=== PATIENT | female | born 1995 | race Caucasian/White ===

== ENCOUNTER 2024-01-04 01:00 | Emergency (ER) | payer MEDICAID ==
[~2024-01-04] VITALS: Ht 172.7 cm; Wt 74.8 kg
[2024-01-04 01:10] VITALS: BP 104/72; PULSE 92; RESP 18; TEMP 98.2; O2SAT 100
[2024-01-04] MEDS ORDERED: KETOROLAC 30 MG/ML VIAL IM ONE (02:00)
[2024-01-04] MEDS ORDERED: HYDROcodone/APAP 5/325 MG 1 TAB TAB PO ONE (02:00)
[2024-01-04] MEDS ORDERED: NAPR-54 PO (02:18)
[2024-01-04] MEDS ORDERED: ACET-10509 PO (02:18)
[2024-01-04 02:32] VITALS: BP 118/81; PULSE 89; RESP 18; TEMP 98.2; O2SAT 100
== END 2024-01-04 02:32 | disposition home or self-care (01) ==
LOC: MED 01:00
DX: S50.02XA Contusion of left elbow, initial encounter (principal); Z79.899 Other long term (current) drug therapy; Z79.1 Long term (current) use of non-steroidal anti-inflammatories (NSAID); W18.39XA Other fall on same level, initial encounter; Y92.89 Other specified places as the place of occurrence of the external cause; Y93.89 Activity, other specified; Y99.8 Other external cause status
CPT/HCPCS: 73080; 96372; 99283; J1885

== ENCOUNTER 2024-01-04 18:33 | Emergency (ER) | payer MEDICAID ==
[~2024-01-04] VITALS: Ht 172.7 cm; Wt 74.8 kg
[~2024-01-04 18:33] MED LIST: ACET-10509 PO; NAPR-54 PO
[2024-01-04 18:36] VITALS: BP 117/69; PULSE 75; RESP 15; TEMP 97.7; O2SAT 98
[2024-01-04] MEDS: HYDROcodone/APAP 5/325 MG 1 TAB TAB PO ONE (19:21)
== END 2024-01-04 19:20 | disposition home or self-care (01) ==
LOC: MED 18:33
DX: S52.122A Displaced fracture of head of left radius, initial encounter for closed fracture (principal); Z79.899 Other long term (current) drug therapy; Z79.1 Long term (current) use of non-steroidal anti-inflammatories (NSAID); X58.XXXA Exposure to other specified factors, initial encounter; Y92.89 Other specified places as the place of occurrence of the external cause; Y93.89 Activity, other specified; Y99.8 Other external cause status
CPT/HCPCS: 29105; 99283

== ENCOUNTER 2024-07-25 22:06 | Emergency (ER) | payer SELFPAY ==
[~2024-07-25] VITALS: Ht 175.3 cm; Wt 81.2 kg
[~2024-07-25 22:06] MED LIST changes: -ACET-10509 PO; +ACET500T99 PO; +NAPR-337 PO; -NAPR-54 PO
[2024-07-25 22:26] VITALS: BP 111/77; PULSE 79; RESP 16; TEMP 99; O2SAT 99
[2024-07-26] MEDS: ACETAMINOPHEN EXTRA STRENGTH 500 MG TAB PO ONE (00:46)
[2024-07-26] MEDS: NACL 0.9% 1,000 ML IV ONE (00:53)
[2024-07-26] MEDS: KETOROLAC 30 MG/ML VIAL IVP ONE (00:54)
[2024-07-26] MEDS: diphenhydrAMINE 50 MG/ML VIAL IVP ONE (00:56)
[2024-07-26] MEDS: METOCLOPRAMIDE 10 MG/2 ML INJ VIAL IVP ONE (00:58)
[2024-07-26] MEDS ORDERED: ACET500T99 PO (01:27)
[2024-07-26] MEDS ORDERED: HYDR25CA1 PO (01:27)
[2024-07-26] MEDS ORDERED: METO-485 PO (01:27)
[2024-07-26] MEDS ORDERED: IBUP-2213 PO (01:27)
[2024-07-26 02:30] VITALS: BP 102/67; PULSE 67; RESP 16; TEMP 97.9; O2SAT 98
== END 2024-07-26 02:30 | disposition home or self-care (01) ==
LOC: MED 22:06
DX: R51.9 Headache, unspecified (principal); Z79.899 Other long term (current) drug therapy
CPT/HCPCS: 70450; 81025; 96361; 96374; 96375; 99285; J1200; J1885; J2765; J7030